=== PATIENT | female | born 1960 | race Caucasian/White ===

== ENCOUNTER → 2016-08-06 | Outpatient (CLI) | payer BC ==
[2016-08-06 10:02] LABS: HEMOGLOBIN 13.9 gm/dl (12.3-15.3); RED BLOOD COUNT 4.63 M/UL (4.00-5.10); WHITE BLOOD COUNT 7.6 K/UL (4.5-11.0)
[2016-08-06 10:25] LABS: BUN/CREATININE RATIO 20 (0-10)
== END ==
LOC: EXRD 08-02 14:00 → MAMO 08-02 15:20 → CT 09:11 → MAMO 10:10
PROVIDERS: Nurse Practitioner Family
DX: F17.210 Nicotine dependence, cigarettes, uncomplicated (principal); E27.9 Disorder of adrenal gland, unspecified
CPT/HCPCS: 36415; 77080; 80053; 80061; 84439; 84443; 85025; G0202; G0297

== ENCOUNTER → 2016-08-25 | Outpatient (CLI) | payer BC | LOC: RAD 11:54 | DX: M25.531 Pain in right wrist (principal) | CPT/HCPCS: 73110 ==

== ENCOUNTER → 2016-09-06 | Outpatient (CLI) | payer BC | LOC: MRI 13:00 | DX: M25.531 Pain in right wrist (principal); R93.7 Abnormal findings on diagnostic imaging of other parts of musculoskeletal system | CPT/HCPCS: 73221 ==